=== PATIENT | male | born 1990 | race Caucasian/White ===

== ENCOUNTER 2019-01-04 20:24 | Emergency (ER) | payer MEDICAID ==
[~2019-01-04] VITALS: Ht 182.9 cm; Wt 70.0 kg
[2019-01-04 20:56] VITALS: BP 155/95
[2019-01-04] MEDS ORDERED: AMOX500C2 PO (21:23)
[2019-01-04] MEDS ORDERED: ketorolac trometh inj. 60 MG/2 ML VIAL IM ONE (21:25)
== END 2019-01-04 21:57 | disposition home or self-care (01) ==
LOC: ER 20:25
DX: R51 Headache (principal); K08.89 Other specified disorders of teeth and supporting structures; M25.512 Pain in left shoulder; Z88.5 Allergy status to narcotic agent
CPT/HCPCS: 96372; 99283; J1885

== ENCOUNTER 2019-12-17 04:08 | Emergency (ER) | payer MEDICAID, OTHER ==
[~2019-12-17] VITALS: Ht 180.3 cm; Wt 70.5 kg
[2019-12-17 04:10] VITALS: BP 104/65
[2019-12-17] MEDS ORDERED: dexamethasone 4mg tablet PO ONE (04:30)
[2019-12-17] MEDS ORDERED: acetaminophen 325mg tablet PO ONE (04:30)
[2019-12-17] MEDS ORDERED: ketorolac trometh inj. 60 MG/2 ML VIAL IM ONE (04:30)
== END 2019-12-17 05:42 | disposition home or self-care (01) ==
LOC: ER 04:08
DX: J11.1 Influenza due to unidentified influenza virus with other respiratory manifestations (principal); Z88.5 Allergy status to narcotic agent
CPT/HCPCS: 96372; 99283; J1885

== ENCOUNTER 2024-05-02 09:30 | Emergency (ER) | payer OTHER ==
[~2024-05-02] VITALS: Ht 185.4 cm; Wt 83.7 kg
[2024-05-02 09:31] VITALS: TEMP 98.4
[2024-05-02] MEDS: ondansetron/PF 4mg/2ml inj IV ONE (10:20)
[2024-05-02] MEDS: normal saline 1000ml 1,000 ML IV ONE (10:20)
[2024-05-02] MEDS: fentaNYL/PF 50MCG/1 ML 2ML syringe IV ONE (10:20)
[2024-05-02] MEDS ORDERED: iohexol 300mg/ml 100ml inj. ONE (10:37)
[2024-05-02 11:17] LABS: BASOPHILS # (AUTO) 0.1 X10'3 (0-0.2); BASOPHILS % (AUTO) 0.6 % (0-1); EOSINOPHILS # (AUTO) 0.1 X10'3 (0-0.9); EOSINOPHILS % (AUTO) 1.5 % (0-6); HEMATOCRIT 44.6 % (42.0-52.0); HEMOGLOBIN 15.5 g/dl (14.0-17.9); LYMPHOCYTES # (AUTO) 1.1 X10'3 (1.1-4.8); LYMPHOCYTES % (AUTO) 11.8 % (21-51); MEAN CORPUSCULAR HGB CONC 34.7 g/dL (33.0-36.5); MEAN CORPUSCULAR VOLUME 94.8 FL (78-98); MEAN PLATELET VOLUME 7.7 FL (7.4-10.4); MONOCYTES # (AUTO) 0.9 X10'3 (0-0.9); MONOCYTES % (AUTO) 9.6 % (2-12); NEUTROPHILS # (AUTO) 7.3 X10'3 (1.8-7.7); NEUTROPHILS % (AUTO) 76.5 % (42-75); PLATELET COUNT 206 X10'3 (140-440); RED CELL DISTRIBUTION WIDTH 12.2 % (11.5-14.5); WHITE BLOOD COUNT 9.5 X10'3 (4.5-11.0)
[2024-05-02 11:28] LABS: ANION GAP 9 (8-16); BLOOD UREA NITROGEN 10 MG/DL (7-18); CALCIUM 8.9 MG/DL (8.5-10.1); CHLORIDE 104 MMOL/L (99-107); CREATININE 0.83 MG/DL (0.60-1.10); GLUCOSE 104 MG/DL (70-104); POTASSIUM 4.2 MMOL/L (3.5-5.1); SODIUM 138 MMOL/L (135-145); TOTAL CARBON DIOXIDE 25.1 MMOL/L (24-32); eCRCL 144 ML/MIN; eGFR > 90 ML/MIN
[2024-05-02 11:29] LABS: ALANINE AMINOTRANSFERASE 41 U/L (12-78); ALBUMIN 4.2 G/DL (3.4-5.0); ALBUMIN/GLOBULIN RATIO 1.1 (1.1-1.5); ALKALINE PHOSPHATASE 93 IU/L (46-116); ASPARTATE AMINO TRANSFERASE 21 U/L (10-37); BILIRUBIN,TOTAL 0.5 MG/DL (0.1-1.0); TOTAL PROTEIN 8.1 G/DL (6.4-8.2)
[2024-05-02 13:03] LABS: BILIRUBIN,URINE NEGATIVE (Neg); CLARITY,URINE CLEAR (Clear); COLOR,URINE YELLOW (Yellow); GLUCOSE, URINE NEGATIVE (Neg); KETONES,URINE NEGATIVE (Neg); LEUKOCYTE ESTERASE ,URINE NEGATIVE (Neg); NITRITES, URINE NEGATIVE (Neg); OCCULT BLOOD,URINE NEGATIVE (Neg); PROTEIN,URINE NEGATIVE (Neg); UROBILINOGEN,URINE 0.2 E.U/dL (0.2-1.0)
[2024-05-02 13:04] LABS: UA COLLECTION TYPE URINAL
[2024-05-02 13:34] VITALS: BP 132/79; PULSE 76; O2SAT 98
[2024-05-02] MEDS ORDERED: ketorolac tromethamine 15mg/ml inj. IV ONE (14:05)
[2024-05-02] MEDS ORDERED: CEPH-585 PO (14:50)
[2024-05-02 15:24] VITALS: RESP 16
[2024-05-02] MEDS: ketorolac trometh. 30mg/ml inj. IV ONE (15:24)
[2024-05-02] MEDS: cephalexin 250mg capsule PO ONE (15:26)
[2024-05-02] MEDS: azithromycin 250mg tablet PO ONE (15:27)
== END 2024-05-02 18:50 | disposition home or self-care (01) ==
LOC: ER 09:30
DX: N45.2 Orchitis (principal); N45.1 Epididymitis; Z88.8 Allergy status to other drugs, medicaments and biological substances
CPT/HCPCS: 36415; 74177; 76870; 80053; 81003; 85025; 93976; 96361; 96374; 96375; 99285; J1885; J2405; J3010; J7030; Q9967

== ENCOUNTER 2024-05-15 10:37 | Emergency (ER) | payer BC, OTHER ==
[~2024-05-15] VITALS: Ht 185.4 cm; Wt 85.4 kg
[~2024-05-15 10:37] MED LIST: CEPH-585 PO
[2024-05-15 11:19] LABS: BASOPHILS # (AUTO) 0.2 X10'3 (0-0.2); EOSINOPHILS % (AUTO) 0 % (0-6); HEMATOCRIT 39.8 % (42.0-52.0); HEMOGLOBIN 13.7 g/dl (14.0-17.9); LYMPHOCYTES # (AUTO) 0.6 X10'3 (1.1-4.8); LYMPHOCYTES % (AUTO) 3.8 % (21-51); MEAN CORPUSCULAR HEMOGLOBIN 32.4 PG (27.0-31.0); MEAN CORPUSCULAR HGB CONC 34.5 g/dL (33.0-36.5); MEAN CORPUSCULAR VOLUME 93.8 FL (78-98); MEAN PLATELET VOLUME 7.5 FL (7.4-10.4); MONOCYTES # (AUTO) 1.1 X10'3 (0-0.9); MONOCYTES % (AUTO) 6.5 % (2-12); NEUTROPHILS # (AUTO) 14.5 X10'3 (1.8-7.7); NEUTROPHILS % (AUTO) 88.7 % (42-75); PLATELET COUNT 197 X10'3 (140-440); RED BLOOD COUNT 4.24 X10'6 (4.70-6.10); RED CELL DISTRIBUTION WIDTH 11.7 % (11.5-14.5); WHITE BLOOD COUNT 16.4 X10'3 (4.5-11.0)
[2024-05-15] MEDS: morphine 4 MG/ML inj SYRINge IV ONE (11:22)
[2024-05-15] MEDS: ondansetron/PF 4mg/2ml inj IV ONE (11:22)
[2024-05-15] MEDS: ketorolac tromethamine 15mg/ml inj. IV ONE (11:22)
[2024-05-15 11:27] LABS: ALBUMIN 3.4 G/DL (3.4-5.0); ANION GAP 10 (8-16); BLOOD UREA NITROGEN 10 MG/DL (7-18); BUN/CREATININE RATIO 10.4 (10.0-20.0); CALCIUM 8.8 MG/DL (8.5-10.1); CHLORIDE 102 MMOL/L (99-107); CREATININE 0.96 MG/DL (0.60-1.10); GLUCOSE 150 MG/DL (70-104); POTASSIUM 4.2 MMOL/L (3.5-5.1); SODIUM 138 MMOL/L (135-145); TOTAL CARBON DIOXIDE 26.4 MMOL/L (24-32); eCRCL 125 ML/MIN; eGFR > 90 ML/MIN
[2024-05-15 11:45] LABS: PLATELET ESTIMATE NORMAL; TOTAL CELLS COUNTED 100
[2024-05-15] MEDS ORDERED: IBUP-1985 PO (13:06)
[2024-05-15] MEDS ORDERED: DOXY-460 PO (13:06)
[2024-05-15] MEDS ORDERED: HYDR-3965 PO (13:06)
[2024-05-15] MEDS: DOXYCYCLINE 100MG CAPSULE PO STA (13:10)
[2024-05-15] MEDS: CefTRIAXone 500MG IM Kit w/LIDOcaine IM ONE (13:10)
[2024-05-15 13:18] VITALS: BP 128/70; PULSE 94; RESP 12; TEMP 97.5; O2SAT 98
== END 2024-05-15 13:21 | disposition home or self-care (01) ==
LOC: ER 10:38
DX: N45.2 Orchitis (principal); N45.1 Epididymitis; N43.3 Hydrocele, unspecified; Z88.8 Allergy status to other drugs, medicaments and biological substances; Z79.2 Long term (current) use of antibiotics; Z79.1 Long term (current) use of non-steroidal anti-inflammatories (NSAID)
CPT/HCPCS: 76870; 80048; 85007; 85025; 93976; 96372; 96374; 96375; 99285; J0696; J1885; J2270; J2405